=== PATIENT | female | born 1970 | race African-American/Black ===

== ENCOUNTER 2017-03-18 10:01 | Emergency (ER) | payer MEDICAID ==
[~2017-03-18] VITALS: Ht 160 cm; Wt 65.8 kg
[~2017-03-18 10:01] MED LIST: ALBU0.084; ZOLP-158
[2017-03-18] MEDS ORDERED: SODIUM CHLORIDE 0.9% 1,000 ML IVB ONE (10:11)
[2017-03-18] MEDS ORDERED: SODIUM CHLORIDE 0.9% 1,000 ML IV ONE ×2 (10:11→11:48)
[2017-03-18] MEDS ORDERED: PROMETHAZINE HCL 25 MG/ML 1ML IV PRN (10:15)
[2017-03-18] MEDS ORDERED: MORPHINE SULFATE 4 MG/ML SYRG IV ONE (10:15)
[2017-03-18 10:58] LABS: Basophils # (auto) 0 uL; Basophils % (auto) 0.2 % (0.0-2.0); CONDITION Y; Eosinophils # (auto) 0 uL; Hematocrit 39.6 % (36.0-46.0); Hemoglobin 13.2 g/dL (12.2-16.2); Lymphocytes # (auto) 0.9 uL; Lymphocytes % (auto) 12.7 % (10.0-50.0); Mean Corpuscular Hemoglobin 33.8 pg (28.0-32.0); Mean Corpuscular Hgb Conc. 33.4 g/dL (32.0-36.0); Mean Corpuscular Volume 101.1 fL (80.0-100.0); Mean Platelet Volume 9.7 fL (7.4-10.4); Monocytes # (auto) 0.4 uL; Monocytes % (auto) 5.3 % (0.0-12.0); Neutrophils # (auto) 6.1 uL; Neutrophils % (auto) 81.8 % (37.0-80.0); Platelet Count (auto) 180 10^3/uL (140-450); Red Cell Distribution Width 14.9 % (11.6-16.0); White Blood Cell 7.4 10^3/uL (4.4-10.8)
[2017-03-18 11:13] LABS: Lactic Acid w/Reflex 2.8 mmol/L (0.4-2.0)
[2017-03-18 11:15] LABS: INR 1.07 (0.9-1.15); Partial Thromboplastin Time 25.5 sec (22.64-33.71); Prothrombin Time 11.7 sec (9.37-12.3)
[2017-03-18 11:16] LABS: Albumin 4.2 g/dL (3.4-5.0); Alkaline Phosphatase 81 U/L (45-117); Anion Gap 11 (5-15); Aspartate Aminotransferase 10 U/L (15-37); BUN/Creatinine Ratio 18.4; Bilirubin, Total 1.1 mg/dL (0.2-1.0); Blood Urea Nitrogen 14 mg/dL (7-18); Calcium 8.8 mg/dL (8.5-10.1); Carbon Dioxide 22 mmol/L (21-32); Chloride 105 mmol/L (98-107); GFR African American 105 mL/min; GFR Non-African American 87 mL/min; Glucose 97 mg/dL (74-106); Sodium 138 mmol/L (136-145); Total Protein 7.4 g/dL (6.4-8.2)
[2017-03-18 11:22] LABS: Potassium 2.8 mmol/L (3.5-5.1)
[2017-03-18] MEDS ORDERED: POTASSIUM CHL 20 Meq TABLET PO ONE (11:30)
[2017-03-18 11:50] LABS: REFLEX LACTIC ACID YES OR NO YES
[2017-03-18 12:57] VITALS: BP 134/84
== END 2017-03-18 13:51 | disposition home or self-care (01) ==
LOC: EDBD 10:01 → ER 10:01
DX: R11.2 Nausea with vomiting, unspecified (principal); Z90.49 Acquired absence of other specified parts of digestive tract; R10.32 Left lower quadrant pain; Z79.899 Other long term (current) drug therapy
CPT/HCPCS: 36415; 71010; 74176; 80053; 83605; 83690; 84484; 85025; 85610; 85730; 87040; 93005; 96361; 96374; 96375; 99285; J2270; J2550; J7030